=== PATIENT | female | born 2000 | race Caucasian/White ===

== ENCOUNTER 2024-04-28 15:04 | Emergency (ER) | payer BC, OTHER ==
[~2024-04-28] VITALS: Ht 170.2 cm; Wt 62.6 kg
[2024-04-28] MEDS ORDERED: ACETAMINOPHEN ES 500 MG TABLET ONE (17:05)
[2024-04-28] MEDS ORDERED: IBUPROFEN 600 MG TABLET ONE (17:05)
[2024-04-28] MEDS: IBUPROFEN 600 MG TABLET PO ONE (17:06)
[2024-04-28] MEDS: ACETAMINOPHEN ES 500 MG TABLET PO ONE (17:06)
[2024-04-28] MEDS ORDERED: CYCLOBENZAPRINE 10 MG TABLET ONE (18:41)
[2024-04-28] MEDS: CYCLOBENZAPRINE 10 MG TABLET PO ONE (18:43)
[2024-04-28] MEDS ORDERED: LIDOCAINE 5% (PATCH) 1 EA PATCH TP ONE (18:49)
[2024-04-28] MEDS: LIDOCAINE 5% (PATCH) 1 EA PATCH TP ONE (18:51)
[2024-04-28 18:55] VITALS: BP 99/46; TEMP 98.1; O2SAT 98
== END 2024-04-28 18:55 | disposition home or self-care (01) ==
LOC: ER 15:45
DX: M54.9 Dorsalgia, unspecified (principal); V89.2XXA Person injured in unspecified motor-vehicle accident, traffic, initial encounter; Y93.89 Activity, other specified; Y92.89 Other specified places as the place of occurrence of the external cause; Y99.8 Other external cause status
CPT/HCPCS: 72070-TC; 72100-TC